=== PATIENT | female | born 1950 ===

== ENCOUNTER 2021-04-08 11:15 | Inpatient (IN) | payer OTHER ==
[~2021-04-08] VITALS: Ht 157.5 cm; Wt 74.8 kg
[2021-04-08] MEDS ORDERED: LOSARTAN-HCTZ1 EAC2 PO (14:47)
[2021-04-08] MEDS ORDERED: ATORVASTATIN CA20 MG PO (14:47)
[2021-04-08] MEDS ORDERED: GABAPENT PO (14:48)
[2021-04-08] MEDS ORDERED: VITAMIN D310 MCG/1 M PO (14:48)
[2021-04-08] MEDS ORDERED: CLONAZEPAM1 M1 PO (14:49)
[2021-04-15] MEDS ORDERED: FAMOTIDINE20 MG (13:53)
[2021-04-15] MEDS ORDERED: GABAPENTIN100 M2 (13:53)
[2021-04-15] MEDS ORDERED: OMEPRAZOLE20 MG (13:53)
[2021-04-15] MEDS ORDERED: ST. JOSEPH ASPI81 M2 (13:53)
[2021-04-15] MEDS ORDERED: TOPIRAMATE50 MG (13:54)
[2021-04-17] MEDS ORDERED: TRAMADOL HCL50 MG PO (16:05)
== END 2021-04-17 16:33 | disposition home or self-care (01) | DRG 330 ==
LOC: O/R 04-14 05:50 → SURH 04-14 10:30 → EDBD 04-14 11:15 → SURH 04-14 11:38
PROVIDERS: ADMIT Colon & Rectal Surgery; ATTEND Colon & Rectal Surgery
PROC: 0DTN4ZZ Resection of Sigmoid Colon, Percutaneous Endoscopic Approach (ICD-10-PCS; 2021-04-14)
PROC: 0DJD8ZZ Inspection of Lower Intestinal Tract, Via Natural or Artificial Opening Endoscopic (ICD-10-PCS; 2021-04-14)
PROC: 3E0F7SF Introduction of Other Gas into Respiratory Tract, Via Natural or Artificial Opening (ICD-10-PCS; 2021-04-14)
PROC: 0DTP4ZZ Resection of Rectum, Percutaneous Endoscopic Approach (ICD-10-PCS; principal; 2021-04-14 10:30)
DX: K92.1 Melena (principal); K57.32 Diverticulitis of large intestine without perforation or abscess without bleeding; Z20.822 Contact with and (suspected) exposure to COVID-19